=== PATIENT | male | born 1995 | race Caucasian/White ===

== ENCOUNTER 2018-11-21 14:28 | Emergency (ER) | payer BC ==
[~2018-11-21] VITALS: Ht 188 cm; Wt 117.9 kg
[2018-11-21] MEDS ORDERED: LORAZEPAM 2 MG/1 ML VIAL IV ONE (14:45)
[2018-11-21] MEDS ORDERED: ONDANSETRON 4 MG/2 ML VIAL IV ONE (14:45)
[2018-11-21] MEDS ORDERED: IV NORMAL SALINE 1000 ML BAG IV ONE (14:45)
[2018-11-21] MEDS ORDERED: FAMOTIDINE. 20 MG/2 ML VIAL IV ONE ×2 (14:45→14:48)
--- NOTE | 2018-11-21 14:45 | NUR ---
PT A/OX4, PRESENTS TO THE ER C/O N/V SINCE 1000 THIS AM. PT REPORTS HX OF GASTRITIS. PER PT REPORT, N/V X 4 SINCE 1000. VSS. SECONDARY COMPLAINT: ABD PAIN RUQ, NON-PROVOKED, SHARP IN QUALITY, DOES NOT RADIATE, 10/10, CONSTANT.
--- NOTE | 2018-11-21 14:46 | NUR ---
PT DENIES C/P, SOB, DIZZINESS, HEADACHE.
[2018-11-21] MEDS ORDERED: ONDANSETRON 4 MG/2 ML VIAL ONE (14:48)
[2018-11-21] MEDS ORDERED: LORAZEPAM 2 MG/1 ML VIAL ONE (14:49)
[2018-11-21 14:55] LABS: BASOPHILS % (AUTO) 0.3 % (0.0-2.0); EOSINOPHILS # (AUTO) 0.1 K/uL (0.0-0.7); EOSINOPHILS % (AUTO) 0.7 % (0.0-7.0); HEMATOCRIT 46.4 % (36.7-47.1); LYMPHOCYTES # (AUTO) 1.1 K/uL (20.0-40.0); LYMPHOCYTES % (AUTO) 12.5 % (20.5-51.5); MEAN CORPUSCULAR HEMOGLOBIN 29.6 uug (23.8-33.4); MEAN CORPUSCULAR HGB CONC 34 g/dL (32.5-36.3); MEAN CORPUSCULAR VOLUME 86.1 fL (73.0-96.2); MONOCYTES # (AUTO) 0.4 K/uL (2.0-10.0); MONOCYTES % (AUTO) 5.1 % (0.0-11.0); NEUTROPHILS % (AUTO) 81.4 % (38.5-71.5); PLATELET COUNT (AUTO) 237 K/uL (152-348); RED BLOOD CELL COUNT(AUTO) 5.39 MIL/uL (4.06-5.63); WHITE BLOOD COUNT (AUTO) 8.6 K/uL (3.6-10.2)
--- NOTE | 2018-11-21 15:00 | NUR ---
PT CONTINUING TO HAVE EPISODES OF VOMITING. ER MD AWARE.
[2018-11-21 15:04] LABS: CREATININE 0.9 mg/dL (0.6-1.3); POTASSIUM 3.4 mmol/L (3.5-5.1)
[2018-11-21 15:10] LABS: BILIRUBIN,DIRECT 0.2 mg/dL (0.0-0.2); TOTAL PROTEIN, SERUM 8.2 g/dL (6.4-8.2)
[2018-11-21] MEDS ORDERED: METOCLOPRAMIDE HCL 10 MG/2 ML VIAL IV ONE (15:30)
[2018-11-21] MEDS ORDERED: MORPHINE SULFATE 2 MG/1 ML DISP.SYRIN IV ONE (15:30)
[2018-11-21] MEDS ORDERED: MORPHINE SULFATE 2 MG/1 ML DISP.SYRIN ONE (15:40)
[2018-11-21] MEDS ORDERED: METOCLOPRAMIDE HCL 10 MG/2 ML VIAL ONE (15:40)
[2018-11-21] MEDS ORDERED: HALOPERIDOL LACTATE 5 MG/1 ML VIAL IM ONE (16:45)
[2018-11-21] MEDS ORDERED: PROCHLORPERAZINE EDISYLATE 10 MG/2 ML VIAL IV ONE (16:45)
[2018-11-21] MEDS ORDERED: HALOPERIDOL LACTATE 5 MG/1 ML VIAL ONE (16:49)
--- NOTE | 2018-11-21 17:21 | NUR ---
PT DOES NOT APPEAR TO BE IN ANY APPARENT DISTRESS. PT VERBALIZES COMFORT AND NO NAUSEA AT THIS TIME.
--- NOTE | 2018-11-21 17:30 | NUR ---
Patient discharged to home in stable conditon. Written and verbal after care instructions given. Patient verbalizes understanding of instructions. ALL BELONGINGS W/ PT. PT SELF-AMBULATED W/O DIFFICULTY. 20G IV ACCESS IN RAC REMOVED PRIOR TO D/C - INNER CANNULA INTACT. PT WILL BE DRIVEN HOME BY SIGNIFICANT OTHER IN PRIVATE VEHICLE.
[2018-11-21 17:31] VITALS: BP 133/71
== END 2018-11-21 17:34 | disposition home or self-care (01) ==
LOC: ER 14:28
DX: K27.9 Peptic ulcer, site unspecified, unspecified as acute or chronic, without hemorrhage or perforation (principal); Z90.49 Acquired absence of other specified parts of digestive tract
CPT/HCPCS: 36415; 80048; 80076; 83690; 85025; 96361; 96372; 96374; 96375; 99283; J1630; J2060; J2270; J2405; J2765; J3490; A4663; J7030